=== PATIENT | female | born 1980 | race Hispanic/Latino ===

== ENCOUNTER → 2020-08-20 02:16 | Outpatient (CLI) | payer OTHER, SELFPAY ==
[2020-08-20 16:16] LABS: SARS-CoV-2 RNA PCR Negative
== END ==
PROVIDERS: Visit Provider Surgery Plastic and Reconstructive Surgery
DX: Z01.812 Encounter for preprocedural laboratory examination (principal); Z20.822 Contact with and (suspected) exposure to COVID-19
CPT/HCPCS: C9803; U0003; U0005

== ENCOUNTER → 2020-09-03 02:17 | Outpatient (CLI) | payer OTHER, SELFPAY ==
[2020-09-03 17:52] LABS: SARS-CoV-2 RNA PCR Negative
== END ==
PROVIDERS: Visit Provider Surgery Plastic and Reconstructive Surgery
DX: Z01.812 Encounter for preprocedural laboratory examination (principal); Z20.822 Contact with and (suspected) exposure to COVID-19
CPT/HCPCS: C9803; U0003; U0005

== ENCOUNTER 2020-09-06 02:31 | Day surgery (SDC) | payer OTHER, SELFPAY ==
[2020-09-02 14:09] VITALS: BMI 27.3
--- NOTE | 2020-09-05 16:54 | WPDANESEPPF ---
Anes - Initial Pre Proc Eval Procedure: Operation Date: 09/06/20 07:30 Proposed Procedures p Bilateral Breast Augmentation, - Morgan Conte MD s Bilateral Breast Mastopexy with Galaflex - Morgan Conte MD Date/Time: 09/05/20 16:54 Surgeon: Morgan Conte MD Pre Op Diagnosis: micromastia, breast ptosis Patient Data Age: 40 Gender: F Height: 1.52 m Weight: 63.5 kg Allergies Allergy/AdvReac Type Severity Reaction Status Date / Time latex AdvReac Mild REDNESS/SARAH Verified 09/06/20 08:05 H Home Medications Medication Instructions Recorded Confirmed Type docusate sodium 100 mg capsule 100 mg PO DAILY #14 cap 08/06/20 09/06/20 Rx ondansetron HCl 4 mg tablet 4 mg PO Q8H #21 tablet 08/06/20 09/06/20 Rx Adzenys XR-ODT 18.8 mg PO 5XW 08/07/20 09/06/20 History carisoprodol 350 mg tablet 350 mg PO TID PRN #21 tablet 08/07/20 09/06/20 Rx oxycodone-acetaminophen 5 mg-325 1 tablet PO Q6H PRN #15 tablet 08/07/20 09/06/20 Rx mg tablet Patient hx anesthesia problems: none Family hx anesthesia problems: none PMFSH Past Medical History Medical History (Updated 09/05/20 @ 16:54 by Pratik Lr MD) ADHD Overweight (BMI 25.0-29.9) Social History Social History Smoking status: Never smoker Second hand tobacco smoke exposure: No Alcohol intake: current Alcohol use details: 2/MONTH-WINE/MIXED DRINK Substance use: never Substance use type: does not use Living arrangements: with roommate(s) Gender identity (if verbalized by the patient): Female Spiritual care concerns: No Anes - Eval Final PreProcedure Day of Procedure 09/05/20 16:54 Patient weight: overweight Heart: regular rate and rhythm Lungs: clear to auscultation and normal air movement Airway: Mallampati scale class II Neurological: alert and oriented Last oral intake: >/= 8 hours ASA classification: II Emergent: no Anesthetic plan: proceed Anesthesia type and monitoring: general LMA Informed Consent: The patient's anesthetic plan and its attendant risks and benefits were discussed with the patient/family/POA. Questions were solicited and answers provided to the satisfaction of the patient/family/POA.
[2020-09-06] VITALS (7 sets, daily range): BP systolic 126–137; BP diastolic 77–99; PULSE 64–104; RESP 14–22; TEMP 36–36.4; O2SAT 98–100
--- NOTE | 2020-09-06 06:50 | PM.IMHP ---
H&P: HPI History of Present Illness Date/Time: 09/06/20 06:50 She is here today for bilateral breast augmentation, and mastopexy with galaflex. She's had time to review her consents. She would like to proceed. Chief Complaint: Desire for augmentation mastopexy with galaflex Review of Systems Review of Systems: All systems reviewed & are unremarkable except as noted in HPI and below PMFSH Past Medical History Medical History (Updated 09/05/20 @ 16:54 by Pratik Lr MD) ADHD Overweight (BMI 25.0-29.9) Social History Social History Smoking status: Never smoker Second hand tobacco smoke exposure: No Alcohol intake: current Alcohol use details: 2/MONTH-WINE/MIXED DRINK Substance use: never Substance use type: does not use Living arrangements: with roommate(s) Gender identity (if verbalized by the patient): Female Spiritual care concerns: No Meds Home Medications and Allergies Home Medications Medication Instructions Recorded Confirmed Type docusate sodium 100 mg capsule 100 mg PO DAILY #14 cap 08/06/20 09/02/20 Rx ondansetron HCl 4 mg tablet 4 mg PO Q8H #21 tablet 08/06/20 09/02/20 Rx amphetamine [Adzenys XR-ODT] 18.8 mg PO 5XW 08/07/20 09/02/20 History carisoprodol 350 mg tablet 350 mg PO TID PRN #21 tablet 08/07/20 09/02/20 Rx oxycodone-acetaminophen 5 mg-325 1 tablet PO Q6H PRN #15 tablet 08/07/20 09/02/20 Rx mg tablet Allergies Allergy/AdvReac Type Severity Reaction Status Date / Time latex AdvReac Mild REDNESS/SARAH Verified 09/02/20 14:05 H Exam Const: General: comfortable, no acute distress, alert and awake; No acute distress Orientation/consciousness: oriented to person HENMT: Head: normal to inspection Ears: external ears normal General nose exam: Normal external nose present Face and sinus: normal facial exam Eyes: General: appearance normal, both eyes and all related structures Periorbital: periorbital findings normal Eyelids: eyelids normal Conjunctivae: conjunctivae normal Neck: Neck: normal visual inspection Chest: Chest palpation & inspection: normal inspection of the chest Resp: Effort & Inspection: normal respiratory effort and able to speak in complete sentences GI: Inspection: normal to inspection Neuro: General: oriented to person Psych: Appearance: grossly normal Mental Status: mental status grossly normal Assessment and Plan Assessment and plan (1) Micromastia: Code(s): N64.82 - Hypoplasia of breast Status: Acute Assessment and Plan: She would like to proceed with bilateral breast augmentation and mastopexy with galaflex. Inspira soft touch silicone, smooth, IMF, submuscular. Approximately 445-485cc, she understands we may need to proceed with a smaller implant and she is willing to accept this. Risks, benefits, alternatives were discussed in extensive detail. I want to be very realistic about the risks involved as well as expectations. Reviewed consent in detail. Discussed aftercare and what to monitor for. Made sure I answered all questions answered to satisfaction and consent obtained. (2) Breast ptosis: Code(s): N64.81 - Ptosis of breast Status: Acute (3) Exposure to phentermine: Code(s): T50.5X5A - Adverse effect of appetite depressants, initial encounter Status: Acute Assessment and Plan: She understands the importance of phentermine avoidance and good nutrition perioperatively.
[2020-09-06] MEDS: LACTATED RINGERS 1,000 ML 30 ML IV CONT ×2 (07:00→10:40)
--- NOTE | 2020-09-06 07:16 | W.PM.PROC2 ---
Procedure Note - Detailed Date of Procedure 09/06/20 Pre-op Diagnosis micromastia, breast ptosis Post-op Diagnosis same Procedure Performed Bilateral augmentation mastopexy with galaflex Surgeon Morgan Conte MD Anesthesia general Findings Bilateral Invert T Superior pedicle mastopexy Bilateral Nishi Nguyen SoftTouch Implants 445cc Right - REF# [id number] SN [id number] Left - REF# [id number] SN [id number] Galaflex REF [id number] Lot [id number] Description of Procedure She is here today for the above. Previously and again today the risks, benefits, alternatives were discussed in extensive detail. I wanted her to be very realistic about the risks involved as well as expectations. We discussed aftercare and what to monitor for. We discussed limitations on implant size given her degree of mastopexy. She understands she could increase implant sizes later date at her expensive if she desires. We discussed the risks involved with this procedure including but not limited to decreased sensation and nipple loss (nipple ). Again today this was a lengthy open-ended conversation as I want her to be very clear about the risks involved as well as expectations. Made sure answered all of her questions to her satisfaction today and consent was obtained. Marked in the preoperative holding area with their verification. The patient was taken to the operating room placed supine on the operating table. Anesthesia was provided by anesthesiology. A surgical time-out was taken. We cleansed the skin and 1% lidocaine and 0.25% Marcaine with epinephrine was used anesthetize as a field block. She was prepped and draped in a standard sterile fashion. Tegaderm nipple Darden were placed. A 15 blade used to make an incision just above the inframammary fold. Dissection was continued at 45 degree angle until the chest wall as identified. I incised the pectoralis major along its inferior border and completely released the inferior border leaving the medial border intact. I created a subpectoral pocket in the appropriate dimensions based on our preoperative planning for the implant. I then copiously irrigated with saline solution and verified a strict hemostasis. Next the use a triple antibiotic and Betadine containing solution to irrigate the pocket. I washed my gloves with the triple antibiotic and Betadine solution. We washed the implant immediately upon opening it with this solution and only opened it when we needed it. I used implant funnel and no-touch technique. The implant was introduced into the pocket using the funnel. Having verified positioning of the implant this was closed using 2-0 Vicryl. I now tailor tacked the breast into position. Placed her in a sitting position. Marked out the nipple-areolar complex based on preoperative markings, intraoperative measurements and observations which were in full agreement. She was placed supine. Using a 10 blade I de-epithelialized the pedicle. Also de-epithelialized remainder tissue resecting was necessary in order to provide optimal outcomes. I elevated medial and lateral flaps. Galaflex had been soaking on the back table in a Betadine solution. It was trimmed and sutured into place with 2-0 Vicryl bilateral. I then closed along the IMF using 2-0 PDS as well as along the pillars. Closed around the areola with 3-0 Monocryl. 3-0 Monocryl along the vertical incision. 3-0 strata fix along the IMF and then closed everything using running subcuticular 4-0 Monocryl. Tissue glue was placed. Fluffs, Alejandro wrap, and surgical bra were placed. Patient was awoke and taken to PACU without difficulty. All instrument sponge counts were correct at the end of the case. Estimated Blood Loss 20 Drains No Packing No Pathology none sent Complications No immediate complications Condition stable Disposition PACU
[2020-09-06 07:25] LABS: Urine Cotinine NEGATIVE
--- NOTE | 2020-09-06 07:29 | WPDHPUPDATE1 ---
History and Physical Update Update Date/Time: 09/06/20 07:29 History and Physical has been reviewed, including an updated exam of the patient. There are NO changes in the patient's condition. Risks, benefits, and alternatives have been discussed and questions answered. Patient agrees to proceed with procedure.
[2020-09-06] MEDS: TRANEXAMIC ACID 1,000MG/ISO100 1,000 MG/100 ML BAG 200 MG IVPB (07:35)
[2020-09-06] MEDS: ceFAZolin 2 GM/D5W 50 ML 2 GM/50 ML BAG IVPB (07:35)
[2020-09-06] MEDS: SCOPOLAMINE 1.5 MG PATCH TRANSDERM (07:48)
[2020-09-06] MEDS: LIDO 1%/EPINEPHRINE 1:100,000 20 ML VIAL 30 ML INFILTRATE (08:31)
[2020-09-06] MEDS: BUPIVACAINE HCL 0.25% PF 30 ML VIAL INFILTRATE (08:33)
--- NOTE | 2020-09-06 11:22 | SUR.PHASEI ---
Simple mask removed at 1112.
--- NOTE | 2020-09-06 11:23 | SUR.PHASEI ---
Patient is constipated and having abdominal cramping.
--- NOTE | 2020-09-06 11:50 | SUR.PHASEI ---
1125: RN took patient to outpatient to use the actual bathroom. She is still in the bathroom at 1150.
[2020-09-06] MEDS: ONDANSETRON INJ 4 MG/2 ML VIAL IV PUSH (13:21)
[2020-09-06] MEDS: oxyCODONE HCL (*CRX) 5 MG TAB IR PO (13:24)
== END 2020-09-06 13:40 | disposition home or self-care (01) ==
PROVIDERS: Visit Provider Surgery Plastic and Reconstructive Surgery
PROC: (CPT 19325; principal; 2020-09-06 07:30)
PROC: (CPT 19316; 2020-09-06 07:30)
DX: Z41.1 Encounter for cosmetic surgery (principal); N64.82 Hypoplasia of breast; N64.81 Ptosis of breast; F90.9 Attention-deficit hyperactivity disorder, unspecified type; Z79.899 Other long term (current) drug therapy
CPT/HCPCS: 19325; 80307; A9270; J0690; J1100; J1170; J1580; J1885; J2250; J2405; J2704; J3010; J7030; J7120

== ENCOUNTER 2020-10-07 16:57 | Emergency (ER) | payer BC, SELFPAY ==
[2020-10-07] VITALS (7 sets, daily range): BP systolic 121–138; BP diastolic 87–91; PULSE 75–91; RESP 15–21; TEMP 36.3; O2SAT 99–100
--- NOTE | ~2020-10-07 | CT_ITS ---
EXAMINATION: CTA chest PE protocol DATE: 10/07/2020 21:25 INDICATION: Shortness of breath. Elevated d-dimer. TECHNIQUE: Computed tomography angiography (CTA) of the chest was performed with 100 mL Omnipaque-350 intravenous contrast timed to evaluate the pulmonary arteries. Coronal maximum intensity projection 3D-reconstructions were created by the technologist. Automated exposure control and iterative reconst ruction technique were employed. Exam dose: 286.29 mGy-cm total exam DLP. COMPARISON: 10/07/2020 2 view chest FINDINGS: There is diagnostic contrast enhancement of the pulmonary arteries and no evidence of pulmo nary embolism. No thoracic aortic aneurysm or dissection. No hilar or mediastinal mass lesion or lymphadenopathy. Normal heart size. No pericardial or pleural effusion. Normal morphology of the adrenal glands. Included upper abdominal structures are unremarkable. No pulmonary infiltrate or consolidation or pulmonary mass lesion is detected. There is moderate concavity of the superior vertebral endplate of T7 consistent with likely remote co mpression fracture. No suspicious osteolytic or osteoblastic lesions are noted. Bilateral breast implants. IMPRESSION: No evidence of pulmonary embolism Reviewed, dictated and finalized at [facility]. Reviewed, dictated and finalized at [facility].
--- NOTE | ~2020-10-07 | XR_ITS ---
XR chest 2V DATE: 10/07/2020 17:34 INDICATION: Shortness of breath. Nausea. Breast implants placed 5 weeks ago TECHNIQUE: PA and lateral views COMPARISON: None FINDINGS: Normal heart size. No hilar or mediastinal enlargement. No pulmonary infiltrate or consolid ation, pleural effusion or pulmonary vascular congestion or pneumothorax. Included skeletal structure s appear normal. IMPRESSION: No active cardiopulmonary disease Reviewed, dictated and finalized at [facility].
--- NOTE | 2020-10-07 17:05 | ECG_ITS ---
Measurements Intervals [place] Rate: 74 P: 74 AL: 113 QRS: 49 QRSD: 74 T: 49 QT: 390 QTc: 435 Interpretive Statements SINUS RHYTHM WITH SHORT AL INTERVAL BASELINE ARTIFACT- I, II, III BORDERLINE ECG Electronically Signed On 10-07-2020 19:27:30 CDT by Pranav Livingston D.O.
[2020-10-07 17:24] LABS: Basophils Percent Auto 0.4 % (0.2-1.2); Eosinophils Absolute Auto 0.1 K/mm3 (0-0.3); Eosinophils Percent Auto 0.7 % (0-4.4); Hematocrit 35.6 % (37.0-47.0); Hemoglobin 11.7 g/dL (12.0-15.0); Immature Granulocyte Absolute 0.03 K/mm3 (0.00-0.031); Immature Granulocyte Percent A 0.4 % (0-0.5); Lymphocytes Absolute Auto 1.35 K/mm3 (0.9-3.2); Lymphocytes Percent Auto 19.3 % (18.3-44.2); Mean Corpuscular HGB Conc 32.9 g/dl (32-36); Mean Corpuscular Hemoglobin 29.7 pg (26-34); Mean Corpuscular Volume 90.4 fl (80-100); Mean Platelet Volume 9.9 fl (7.4-10.4); Monocytes Absolute Auto 0.4 K/mm3 (0.1-0.6); Neutrophils Absolute Auto 5.2 K/mm3 (1.3-6.7); Neutrophils Percent Auto 74.2 % (45.5-73.1); Platelet Count Result 256 k/mm3 (150-375); Red Blood Count 3.94 M/mm3 (4.2-5.4); Red Cell Distribution Width 12.7 % (11.5-14.5)
[2020-10-07 17:34] LABS: Anion Gap 6 mmol/L (8-16); Blood Urea Nitrogen 9 mg/dL (7-17); Calcium 9.1 mg/dL (8.4-10.2); Carbon Dioxide 25 mmol/L (22-30); Chloride 106 mmol/L (98-107); Estimated CRCL calculation 107 ml/min; Estimated Glomerular Filt Rate > 60; Glucose 90 mg/dL (65-110); Potassium 3.7 mmol/L (3.4-5.0); Sodium 137 mmol/L (137-145)
[2020-10-07 20:43] LABS: D Dimer 1.08 ug/mL (<0.48)
[2020-10-07] MEDS: ONDANSETRON INJ 4 MG/2 ML VIAL IV PUSH (20:57)
[2020-10-07] MEDS: KETOROLAC 30 MG/ML VIAL (*BKC) IV PUSH (22:27)
[2020-10-07] MEDS: HYDROcodone/acetaminophen (*CRX) 5-325 MG TABLET 1 TAB PO (22:31)
--- NOTE | 2020-10-07 22:52 | ED.GENADULT ---
HPI - General Adult General Chief complaint: Unspecified Stated complaint: s/p surgery swelling, breast Time Seen by Provider: 10/07/20 21:45 Source: patient Mode of arrival: ambulatory Limitations: no limitations History of Present Illness HPI narrative: Patient is a 40-year-old female complaining of right breast pain x1 week, redness x1 day and shortness of breath x1 day, which he attributes to the increased swelling of the right breast. Patient states that she recently had breast augmentation and breast lift surgery approximately 5 weeks ago. Patient states that she saw her plastic surgeon today, Dr. Merida, and was advised to go to the emergency room to get evaluated since she is short of breath. Related Data Home Medications Medication Instructions Recorded Confirmed Adzenys XR-ODT 18.8 mg PO 5XW 08/07/20 09/06/20 Allergies Allergy/AdvReac Type Severity Reaction Status Date / Time latex AdvReac Mild REDNESS/SARAH Verified 10/07/20 19:52 H Review of Systems Review of Systems: All systems reviewed & are unremarkable except as noted in HPI and below Constitutional: Constitutional: Denies body ache(s), Denies chills, Denies excessive sweating, Denies fatigue, Denies fever(s), Denies headache(s), Denies lethargy, Denies malaise, Denies weakness and Denies weight loss Eyes: Eyes: Denies blurry vision, Denies change in vision and Denies loss of vision ENT: Denies dizziness, Denies ear discharge, Denies headache(s), Denies lip swelling, Denies epistaxis, Denies nasal congestion, Denies neck pain, Denies throat swelling and Denies tongue swelling Cardiovascular: Cardiovascular: Denies chest pain, Denies chest pain at rest, Denies chest pain with activity, Denies diaphoresis, Denies rapid heart rate, Denies edema, Denies irregular heart rhythm, Denies lightheadedness, Denies palpitations and Denies dyspnea on exertion Respiratory: Respiratory: Denies chest congestion, Denies cough, Denies hemoptysis and Denies dyspnea on exertion Gastrointestinal: Gastrointestinal: Denies abdominal pain, Denies melena, Denies hematochezia, Denies diarrhea, Denies nausea, Denies vomiting and Denies hematemesis Musculoskeletal: Musculoskeletal: Denies abnormal gait, Denies deformity, Denies joint swelling, Denies limited range of motion, Denies neck pain and Denies numbness Neurologic: Denies Abnormal speech present, Denies abnormal gait, Denies confusion, Denies dizziness, Denies headache(s), Denies focal weakness, Denies loss of vision, Denies numbness, Denies Other visual disturbances, Denies Sensory deficit (Neuro) and Denies weakness Psychiatric: Psychiatric: Denies confusion, Denies depression, Denies auditory hallucinations, Denies homicidal ideation and Denies suicidal ideation Endocrine: Endocrine: Denies cold intolerance, Denies excessive sweating, Denies fatigue, Denies heat intolerance and Denies palpitations Hematologic/Lymphatic: Hematologic/Lymphatic: Denies easy bleeding and Denies easy bruising Allergic/Immunologic: Allergic/Immunologic: Denies lip swelling, Denies throat swelling and Denies tongue swelling PMFSH Past Medical History Medical History ADHD Overweight (BMI 25.0-29.9) Social History Social History Second hand tobacco smoke exposure: No Alcohol intake: current Alcohol use details: 2/MONTH-WINE/MIXED DRINK Substance use: never Substance use type: does not use Gender identity (if verbalized by the patient): Female Spiritual care concerns: No Exam Const: General: cooperative, healthy appearing, comfortable, no acute distress, well developed, alert and awake; No confusion Orientation/consciousness: oriented to person, oriented to place, oriented to time, patient oriented x3 and No confusion Limitations: no limitations HENMT: Head: normal to inspection, normocephalic and atraumat
== END 2020-10-07 23:21 | disposition home or self-care (01) ==
PROVIDERS: Emergency Medicine; Physician Assistant; Emergency Provider Emergency Medicine; PCP Surgery Plastic and Reconstructive Surgery
DX: N64.4 Mastodynia (principal); R06.00 Dyspnea, unspecified; F90.9 Attention-deficit hyperactivity disorder, unspecified type; E66.3 Overweight; Z68.28 Body mass index [BMI] 28.0-28.9, adult; Z98.890 Other specified postprocedural states; R94.31 Abnormal electrocardiogram [ECG] [EKG]
CPT/HCPCS: 36415; 71046; 71275; 80048; 81025; 85025; 85380; 93005; 96374; 96375; 99284; A9270; J1885; J2405; Q9967

== ENCOUNTER → 2020-10-15 02:31 | Outpatient (CLI) | payer OTHER, SELFPAY ==
[2020-10-15 19:55] LABS: SARS-CoV-2 RNA PCR Negative
== END ==
PROVIDERS: PCP Surgery Plastic and Reconstructive Surgery; Visit Provider Surgery Plastic and Reconstructive Surgery
DX: Z01.812 Encounter for preprocedural laboratory examination (principal); Z20.822 Contact with and (suspected) exposure to COVID-19
CPT/HCPCS: C9803; U0003; U0005

== ENCOUNTER 2020-10-17 00:25 | Day surgery (SDC) | payer OTHER, SELFPAY ==
[2020-10-15 07:26] VITALS: BMI 28.4
[2020-10-17] VITALS (16 sets, daily range): BP systolic 106–138; BP diastolic 56–84; PULSE 78–108; RESP 11–17; TEMP 36.6–37; O2SAT 100
[2020-10-17] MEDS: LACTATED RINGERS 1,000 ML 30 ML IV CONT ×3 (09:58→12:08)
--- NOTE | 2020-10-17 09:59 | WPDANESEPPF ---
Anes - Initial Pre Proc Eval Procedure: Operation Date: 10/17/20 11:00 Proposed Procedures p Washout and Right Breast Implant Exchange - Morgan Conte MD Date/Time: 10/17/20 09:59 Surgeon: Morgan Conte MD Pre Op Diagnosis: Hx of Bilateral Breast Augmentation Patient Data Age: 40 Gender: F Height: 1.52 m Weight: 68.2 kg Last Vital Signs Temp 98.6 F 10/17/20 09:34 Pulse 97 10/17/20 09:34 Resp 16 10/17/20 09:34 BP 126/78 10/17/20 09:34 Pulse Ox 100 10/17/20 09:34 Allergies Allergy/AdvReac Type Severity Reaction Status Date / Time latex AdvReac Mild REDNESS/SARAH Verified 10/17/20 09:34 H Home Medications Medication Instructions Recorded Confirmed Type Adzenys XR-ODT 18.8 mg PO 5XW 08/07/20 10/17/20 History hydrocodone-acetaminophen 1 tablet PO Q6H PRN #10 tablet 10/07/20 10/17/20 Rx hydrocodone-acetaminophen 1 tablet PO Q6H PRN #10 tablet 10/07/20 10/17/20 Rx cephalexin 500 mg capsule 500 mg PO TID 7 Days #21 cap 10/14/20 10/17/20 Rx Patient hx anesthesia problems: none Family hx anesthesia problems: none PMFSH Past Medical History Medical History ADHD Overweight (BMI 25.0-29.9) Social History Social History Second hand tobacco smoke exposure: No Alcohol intake: current Alcohol use details: 2/MONTH-WINE/MIXED DRINK Substance use: never Substance use type: does not use Living arrangements: with family Gender identity (if verbalized by the patient): Female Spiritual care concerns: No Anes - Eval Final PreProcedure Day of Procedure 10/17/20 09:59 Patient weight: overweight Heart: regular rate and rhythm Lungs: clear to auscultation Airway: Mallampati scale class II Neurological: alert and oriented Last oral intake: >/= 8 hours ASA classification: II Emergent: no Anesthetic plan: proceed Anesthesia type and monitoring: general LMA and standard monitoring Informed Consent: The patient's anesthetic plan and its attendant risks and benefits were discussed with the patient/family/POA. Questions were solicited and answers provided to the satisfaction of the patient/family/POA.
--- NOTE | 2020-10-17 10:05 | WPDHPUPDATE1 ---
History and Physical Update Update Date/Time: 10/17/20 10:05 History and Physical has been reviewed, including an updated exam of the patient. There are NO changes in the patient's condition. Risks, benefits, and alternatives have been discussed and questions answered. Patient agrees to proceed with procedure.
[2020-10-17] MEDS: ceFAZolin 2 GM/D5W 50 ML 2 GM/50 ML BAG IVPB (10:10)
[2020-10-17] MEDS: BUPIVACAINE HCL 0.25% PF 30 ML VIAL INFILTRATE (10:14)
--- NOTE | 2020-10-17 11:11 | W.PM.PROC2 ---
Procedure Note - Detailed Date of Procedure 10/17/20 Pre-op Diagnosis Hx of Bilateral Breast Augmentation Post-op Diagnosis same Procedure Performed Right breast washout with implant exchange Surgeon Morgan Conte MD Anesthesia general Findings 30 cc old hematoma. No signs of infection. Right implant replaced with Tyson Plunkettira SoftTouch Implant 445cc REF# [id number] Description of Procedure Preoperatively the risks, benefits, alternatives were discussed in extensive detail. I wanted her to be very realistic about the risks involved as well as expectations. Went over all possible outcomes. Answered all of her questions to her satisfaction today. She would like proceed. Consent obtained. Today we also discussed not to place anything on her right breast. No additional treatment. We are going to see her back and in the meantime walk regularly with ambulation and call with any questions or concerns. No dressings or other topicals are necessary in the right breast at this point till we see her back or if she calls with concerns. She was marked. Taken the operating room placed supine on the operating room table. Anesthesia was provided by anesthesiology and prepped and draped in a standard sterile fashion. Surgical time-out was taken. 1% lidocaine and 0.25% Marcaine with epinephrine was used anesthetize locally. I placed a Tegaderm nipple Darden over the right areola as well as the small lateral right breast wound. Fifteen blade used to excise the previous scar. Dissection was continued down to the implant was identified. This was removed. Identified 30 cc of old hematoma. There is no evidence of infection. No purulence. No fluctuance. I irrigated with 2 L of saline solution on TUR tubing. I then irrigated with triple antibiotic Betadine allowed significant time for this to sit. I then irrigated again with a L of saline on TUR tubing. Finally I irrigated with triple antibiotic Betadine solution. Wash my gloves. Using a no-touch technique and a Hutchison funnel a new implant was introduced into the pocket. I closed using 2-0 Vicryl followed by 3-0 Monocryl in a running subcuticular 4-0 Monocryl and tissue glue. Dressings were placed. She was awoke and taken to the PACU without difficulty. All instrument sponge counts were correct at the end of the case. Estimated Blood Loss 10 Drains No Packing No Pathology none sent Complications No immediate complications Condition stable Disposition PACU
[2020-10-17] MEDS: fentaNYL CITRATE INJ (*CRX) 100 MCG/2 ML VIAL 25 MCG IV PUSH ×2 (11:34→12:07)
[2020-10-17] MEDS: KETOROLAC 30 MG/ML VIAL (*BKC) IV PUSH (12:56)
[2020-10-17] MEDS: oxyCODONE HCL (*CRX) 5 MG TAB IR PO (13:10)
== END 2020-10-17 15:08 | disposition home or self-care (01) ==
PROVIDERS: Visit Provider Surgery Plastic and Reconstructive Surgery
PROC: (CPT 19342; principal; 2020-10-17 11:00)
DX: L76.34 Postprocedural seroma of skin and subcutaneous tissue following other procedure (principal); Z98.82 Breast implant status; F90.9 Attention-deficit hyperactivity disorder, unspecified type
CPT/HCPCS: 19328; 19325; A9270; C9803; J0690; J1580; J1885; J2250; J2405; J2704; J3010; J7120; U0003; U0005